=== PATIENT | male | born 1945 | race Hispanic/Latino ===

== ENCOUNTER 2019-05-27 13:31 | Emergency (ER) | payer OTHER ==
[2019-05-27] MEDS ORDERED: IPRATROPIUM BROM 0.5MG/2.5ML ONE (14:10)
[2019-05-27] MEDS ORDERED: ALBUTEROL 2.5 MG/3 ML NEB SOL ONE (14:10)
[2019-05-27] MEDS ORDERED: BENZONATATE 100 MG CAP PO ONE (14:10)
--- NOTE | 2019-05-27 14:49 | RAD REPORT ---
EXAM DESCRIPTION: RAD - Chest Pa And Lat (2 Views) - 05/27/2019 2:29 pm CLINICAL HISTORY: COUGH Chest pain. COMPARISON: CHEST PA AND LAT 2 VIEW dated 02/25/2014; CHEST PA AND LAT 2 VIEW dated 10/23/2012; CHEST PA AND LAT 2 VIEW dated 05/22/2009; CHEST PA AND LAT 2 VIEW dated 10/04/2001 TECHNIQUE: PA and lateral views of the chest were obtained. FINDINGS: The lungs are hyperexpanded compatible with COPD. The heart is upper limit of normal in si ze. No fracture or aggressive bony process. IMPRESSION: COPD without acute process identified.
--- NOTE | 2019-05-27 15:40 | ER ---
Nurse's Notes [facility] Name: Ruddy Marsh Age: 74 yrs Sex: Male : 1945 Arrival Date: 05/27/2019 Time: 13:33 Bed 6 Private MD: Haley Bosch F Diagnosis: Acute upper respiratory infection, unspecified Presentation: 05/27 13:38 Presenting complaint: Patient states: productive cough x 3 days. Transition of care: sv patient was not received from another setting of care. Onset of symptoms was May 24, 2019. Risk Assessment: Do you want to hurt yourself or someone else? Patient reports no desire to harm self or others. Initial Sepsis Screen: Does the patient meet any 2 criteria? HR > 90 bpm. No. Patient's initial sepsis screen is negative. Does the patient have a suspected source of infection? Yes: Productive cough/pneumonia. Care prior to arrival: None. 13:38 Method Of Arrival: Ambulatory sv 13:38 Acuity: GEOFFREY 3 sv Triage Assessment: 13:38 General: Appears in no apparent distress. comfortable, Behavior is calm, cooperative, sv appropriate for age. Neuro: Level of Consciousness is awake, alert, obeys commands, Oriented to person, place, time, situation, Gait is steady. Respiratory: Reports cough that is productive, persistent Respiratory effort is even, unlabored, Respiratory pattern is regular, symmetrical. Historical: - Allergies: 13:39 No Known Allergies; sv - PMHx: 13:39 Hypertension; sv 13:44 COPD; sv - Immunization history:: Adult Immunizations up to date. - Social history:: Smoking status: Patient uses tobacco products, denies chronic smoking, but will smoke occasionally. - Ebola Screening: : No symptoms or risks identified at this time. Screenin:57 Abuse screen: Denies threats or abuse. Denies injuries from another. Nutritional bp screening: No deficits noted. Tuberculosis screening: No symptoms or risk factors identified. Fall Risk None identified. Assessment: 13:45 General: SEE TRIAGE NOTE. Pain: Denies pain. bp 15:47 Reassessment: PT D/C HOME AMBULATORY, DX WITH VIRAL URI. bp Vital Signs: 13:40 BP 184 / 96; Pulse 98; Resp 20; Temp 98.4; Pulse Ox 98% ; Weight 80.74 kg; Height 5 ft. sv 8 in. (172.72 cm); 15:48 BP 169 / 85; Pulse 100; Resp 18; Temp 98.5; Pulse Ox 99% ; bp 13:40 Body Mass Index 27.06 (80.74 kg, 172.72 cm) sv ED Course: 13:33 Patient arrived in ED. mr 13:34 Haley Bosch MD is Private Physician. mr 13:39 Triage completed. sv 13:40 Arm band placed on. sv 13:46 Jose De Jesus Rivera PA is PHCP. cp 13:46 Perez Saeed MD is Attending Physician. cp 13:51 Jovanni Dolan, RN is Primary Nurse. bp 13:57 Patient has correct armband on for positive identification. Bed in low position. Call bp light in reach. Side rails up X2. 14:17 Strep swab [facility] lab[facility] 14:29 XRAY Chest Pa And Lat (2 Views) In Process Unspecified. EDMS 15:39 Haley Bosch MD is Referral Physician. cp 15:48 No provider procedures requiring assistance completed. Patient did not have IV access bp during this emergency room visit. Administered Medications: 14:05 Drug: Albuterol 2.5 mg Route: Inhalation; bp 14:05 Drug: AtroVENT Aerosol 0.5 mg Route: Inhalation; bp 14:05 Drug: Tessalon Perle 200 mg Route: PO; bp 15:47 Follow up: Response: No adverse reaction bp Outcome: 15:39 Discharge ordered by MD. cp 15:48 Discharged to home ambulatory. bp 15:48 Condition: stable 15:48 Discharge instructions given to patient, Instructed on discharge instructions, follow up and referral plans. medication usage, Demonstrated understanding of instructions, follow-up care, medications, Prescriptions given X 3. 15:49 Patient left the ED. bp Signatures: Dispatcher [employer] EDMS Kamini Piña RN RN Natalya Beth mr Jose De Jesus Rivera PA PA [facility] Jovanni Dolan, RN RN bp
--- NOTE | 2019-05-27 15:40 | EDPHYS ---
Physician Documentation [facility] Name: Ruddy Marsh Age: 74 yrs Sex: Male : 1945 Arrival Date: 05/27/2019 Time: 13:33 Bed 6 Private MD: Haley Bosch F ED Physician Perez Saeed HPI: 05/27 14:05 This 74 yrs old Male presents to ER via Ambulatory with complaints of Cough. cp 14:05 The patient or guardian reports cough, that is intermittent, with productive sputum, cp that is white. Onset: The symptoms/episode began/occurred 3 day(s) ago. 14:05 Severity of symptoms: in the emergency department the symptoms are unchanged, despite cp home interventions. Associated signs and symptoms: Pertinent positives: sore throat, Pertinent negatives: chest pain, diarrhea, fever, vomiting. Historical: - Allergies: 13:39 No Known Allergies; sv - PMHx: 13:39 Hypertension; sv 13:44 COPD; sv - Immunization history:: Adult Immunizations up to date. - Social history:: Smoking status: Patient uses tobacco products, denies chronic smoking, but will smoke occasionally. - Ebola Screening: : No symptoms or risks identified at this time. ROS: 14:10 Constitutional: Negative for body aches, chills, fever, poor PO intake. cp 14:10 Eyes: Negative for injury, pain, redness, and discharge. cp 14:10 ENT: Positive for sinus congestion, sore throat, Negative for drainage from ear(s), ear pain, difficulty swallowing, difficulty handling secretions. 14:10 Cardiovascular: Negative for chest pain, edema, palpitations. 14:10 Respiratory: Positive for cough, with white sputum, Negative for dyspnea on exertion, hemoptysis, shortness of breath, wheezing. 14:10 Abdomen/GI: Negative for abdominal pain, nausea, vomiting, and diarrhea. 14:10 Back: Negative for radiated pain. 14:10 : Negative for urinary symptoms. 14:10 Skin: Negative for cellulitis, rash. 14:10 Neuro: Negative for altered mental status, dizziness, headache, syncope, weakness. 14:10 All other systems are negative. Exam: 14:20 Head/Face: Normocephalic, atraumatic. cp 14:20 Constitutional: The patient appears in no acute distress, alert, awake, non-diaphoretic, non-toxic, well developed, well nourished. 14:20 Eyes: Periorbital structures: appear normal, Conjunctiva: normal, no exudate, no cp injection, Sclera: no appreciated abnormality, Lids and lashes: appear normal, bilaterally. 14:20 ENT: External ear(s): are unremarkable, Ear canal(s): are normal, clear, TM's: bulging, is not appreciated, bilaterally, dullness, bilaterally, erythema, is not appreciated, bilaterally, Nose: is normal, Mouth: Lips: moist, Oral mucosa: pink and intact, moist, Posterior pharynx: is normal, airway is patent, no erythema, no exudate. 14:20 Neck: ROM/movement: is normal, is supple, without pain, no range of motions limitations, no meningismus, no nuchal rigidity. 14:20 Chest/axilla: Inspection: normal, Palpation: is normal, no crepitus, no tenderness. 14:20 Cardiovascular: Rate: normal, Rhythm: regular, Edema: is not appreciated. 14:20 Respiratory: the patient does not display signs of respiratory distress, Respirations: normal, no use of accessory muscles, no shallow respirations, no splinting, Breath sounds: rales, are not appreciated, decreased breath sounds, that are mild, throughout, rhonchi, are not appreciated, stridor, is not appreciated, + upper airway congestion. wheezing: is not appreciated. 14:20 Abdomen/GI: Inspection: abdomen appears normal, Palpation: abdomen is soft and non-tender, in all quadrants. 14:20 Back: pain, is absent, ROM is normal. 14:20 Skin: no rash present. 14:20 Neuro: Orientation: to person, place \T\ time. Mentation: is normal, Cerebellar function: Motor: moves all fours, strength is normal, Gait: is steady. Vital Signs: 13:40 BP 184 / 96; Pulse 98; Resp 20; Temp 98.4; Pulse Ox 98% ; Weight 80.74 kg; Height 5 ft. sv 8 in. (172.72 cm); 15:48 BP 169 / 85; Pulse 100; Resp 18; Temp 98.5; Pulse Ox 99% ; bp 13:40 Body Mass Index 27.06 (80.74 kg, 172.72 cm) sv MDM: 13:53 Patient medically screened. cp 14:00 Differential Diagnosis: Bronchitis Influenza Sinusitis Otitis Media Viral Syndrome cp Pneumonia. 15:38 Data reviewed: vital signs, nurses notes, lab test result(s), radiologic studies, CT cp scan. 15:38 Test interpretation: by ED physician or midlevel provider: chest xray negative for cp infiltrates. Counseling: I had a detailed discussion with the patient and/or guardian regarding: the historical points, exam findings, and any diagnostic results supporting the discharge/admit diagnosis, lab results, radiology results, to return to the emergency department if symptoms worsen or persist or if there are any questions or concerns that arise at home. Response to treatment: the patient's symptoms have mildly improved after treatment, and as a result, I will discharge patient. Special discussion: I discussed with the patient/guardian that the patient's current presentation does not indicate dosing of antibiotics. They should follow-up with their primary care provider and return if the symptoms persist or progress. 05/27 14:00 Order name: Strep; Complete Time: 15:15 cp 05/27 15:15 Interpretation: Reviewed. cp 05/27 14:41 Order name: Throat Culture EDMS 05/27 14:00 Order name: XRAY Chest Pa And Lat (2 Views) cp Administered Medications: 14:05 Drug: Albuterol 2.5 mg Route: Inhalation; bp 14:05 Drug: AtroVENT Aerosol 0.5 mg Route: Inhalation; bp 14:05 Drug: Tessalon Perle 200 mg Route: PO; bp 15:47 Follow up: Response: No adverse reaction bp Disposition: 05/27/19 15:39 Discharged to Home. Impression: Acute upper respiratory infection, unspecified. - Condition is Stable. - Discharge Instructions: Upper Respiratory Infection, Adult. - Prescriptions for Ibuprofen 800 mg Oral Tablet - take 1 tablet by ORAL route every 8 hours As needed take with food; 30 tablet. Tessalon Perles 100 mg Oral Capsule - take 2 capsule by ORAL route every 8 hours As needed; 20 capsule. Albuterol Sulfate 90 mcg/actuation - inhale 1-2 puff by INHALATION route every 4-6 hours; 1 Inhaler. - Medication Reconciliation Form, Thank You Letter, Antibiotic Education, Prescription Opioid Use form. - Follow up: Haley Bosch MD; When: 2 - 3 days; Reason: Recheck today's complaints. - Problem is new. - Symptoms have improved. Addendum: 05/29/2019 19:23 Co-signature as Attending Physician, Perez Saeed MD I agree with the assessment and k dr plan of care. Signatures: Dispatcher [employer] EDKamini Mckenzie, RN RN Perez Hayes MD MD [facility] Jose De Jesus Rivera PA PA cp Jovanni Dolan RN RN bp Corrections: (The following items were deleted from the chart) 05/27 15:49 15:39 05/27/2019 15:39 Discharged to Home. Impression: Acute upper respiratory bp infection, unspecified. Condition is Stable. Forms are Medication Reconciliation Form, Thank You Letter, Antibiotic Education, Prescription Opioid Use. Follow up: Haley Bosch; When: 2 - 3 days; Reason: Recheck today's complaints. Problem is new. Symptoms have improved. cp
== END 2019-05-27 15:49 | disposition home or self-care (01) ==
LOC: ER 13:31
DX: J06.9 Acute upper respiratory infection, unspecified (principal)
CPT/HCPCS: 71046; 87070; 87081; 99284

== ENCOUNTER 2021-11-25 01:01 | Emergency (ER) | payer OTHER ==
[2021-11-25 01:50] LABS: Absolute Lymphocytes (CBC) 2.2 K/uL (0.7-4.9); Hematocrit 44.3 % (39.6-49.0); Lymphocytes % 32.7 % (15.3-44.8); MPV 7.1 fL (7.6-11.3)
[2021-11-25 01:51] LABS: Protime INR 0.97
[2021-11-25 02:04] LABS: Albumin 3.2 g/dL (3.4-5.0); Bilirubin Direct 0.1 mg/dL (0-0.2); Bilirubin Total 0.4 mg/dL (0.2-1.0); Magnesium 2.1 mg/dL (1.8-2.4); Potassium 3.3 mmol/L (3.5-5.1); Protein, Total 6.9 g/dL (6.4-8.2); Troponin High Sensitivity 22.7 pg/mL (<58.9)
[2021-11-25] MEDS ORDERED: predniSONE 20 MG TAB ONE (02:20)
[2021-11-25] MEDS ORDERED: CEFTRIAXONE 1000 MG/VIAL ONE (02:20)
--- NOTE | 2021-11-25 02:32 | ER ---
Nurse's Notes [facility] Name: Ruddy Marsh Age: 76 yrs Sex: Male : 1945 Arrival Date: 11/25/2021 Time: 01:03 Bed 6 Private MD: Diagnosis: COPD/ Chronic obstructive pulmonary disease, unspecified Presentation: 11/25 01:16 Chief complaint: Patient states: I woke up with difficulty breathing and SOB. My oxygen st1 saturation at home was in the 80's. Coronavirus screen: Vaccine status: Patient reports being unvaccinated. Client denies travel out of the [place] in the last 14 days. Ebola Screen: No symptoms or risks identified at this time. Initial Sepsis Screen: Does the patient meet any 2 criteria? No. Patient's initial sepsis screen is negative. Does the patient have a suspected source of infection? No. Patient's initial sepsis screen is negative. Risk Assessment: Do you want to hurt yourself or someone else? Patient reports no desire to harm self or others. Onset of symptoms was November 25, 2021. 01:16 Method Of Arrival: Ambulatory st1 01:16 Acuity: GEOFFREY 3 st1 Triage Assessment: 01:18 General: Appears in no apparent distress. comfortable, Behavior is calm, cooperative. st1 Pain: Denies pain. Respiratory: Reports shortness of breath at rest Onset: The symptoms/episode began/occurred suddenly, the patient has moderate shortness of breath. Historical: - Allergies: 01:18 No Known Allergies; st1 - PMHx: 01:18 COPD; Hypertension; st1 - Immunization history:: Adult Immunizations not up to date. - Social history:: Smoking status: Patient reports the use of cigarette tobacco products, denies chronic smoking, but will smoke occasionally, 2-3 cigarettes per day . Screenin:20 Abuse screen: Denies threats or abuse. Nutritional screening: No deficits noted. st1 Tuberculosis screening: No symptoms or risk factors identified. Fall Risk None identified. No fall in past 12 months (0 pts). No secondary diagnosis (0 pts). IV access (20 points). Ambulatory Aid- None/Bed Rest/Nurse Assist (0 pts). Gait- Normal/Bed Rest/Wheelchair (0 pts) Mental Status- Oriented to own ability (0 pts). Total Londono Fall Scale indicates No Risk (0-24 pts). Assessment: 01:20 Reassessment: Patient appears in no apparent distress at this time. Patient is alert, st1 oriented x 3, equal unlabored respirations, skin warm/dry/pink. Respiratory: No deficits noted. Airway is patent Respiratory effort is even, unlabored, relaxed, 02:20 Reassessment: Patient is alert, oriented x 3, equal unlabored respirations, skin al4 warm/dry/pink. 02:41 Reassessment: Patient is alert, oriented x 3, equal unlabored respirations, skin al4 warm/dry/pink. 02:42 Cardiovascular: Rhythm is regular. al4 Vital Signs: 01:16 Weight 72.57 kg; Height 5 ft. 8 in. (172.72 cm); Pain 0/10; st1 01:16 BP 149 / 64; Pulse 46; Resp 15; Temp 97.9(O); Pulse Ox 95% on R/A; st1 02:00 BP 111 / 65; Pulse 72; Resp 18 S; Pulse Ox 92% on R/A; al4 01:16 Body Mass Index 24.33 (72.57 kg, 172.72 cm) st1 ED Course: 01:03 Patient arrived in ED. wm 01:12 Rachel Amaral, BREEZY is Primary Nurse. st1 01:12 Montez Andrade NP is PHCP. pm1 01:12 Fredy Connell MD is Attending Physician. pm1 01:17 Triage completed. st1 01:18 Arm band placed on right wrist. st1 01:21 Patient has correct armband on for positive identification. Placed in gown. Bed in low st1 position. Call light in reach. Side rails up X 1. 01:30 Inserted saline lock: 20 gauge in right forearm, using aseptic technique. st1 01:34 Basic Metabolic Panel Sent. st1 01:34 LFT's Sent. st1 01:34 CBC with Diff Sent. st1 01:34 Magnesium Sent. st1 01:34 NT PRO-BNP Sent. st1 01:34 PT-INR Sent. st1 01:34 Troponin HS Sent. st1 01:53 XRAY Chest (1 view) In Process Unspecified. EDMS 02:42 No provider procedures requiring assistance completed. IV discontinued, intact, al4 bleeding controlled, No redness/swelling at site. Pressure dressing applied. Administered Medications: 02:22 Drug: predniSONE 60 mg Route: PO; al4 02:48 Follow up: Response: No adverse reaction al4 02:23 Drug: Rocephin (cefTRIAXone) 1 grams Route: IV; Rate: calculated rate; Site: right al4 forearm; 02:23 Follow up: Response: No adverse reaction; IV Status: Completed infusion al4 Outcome: 02:31 Discharge ordered by MD. pm1 02:42 Discharged to home ambulatory, with family. al4 02:42 Condition: stable 02:42 Discharge instructions given to patient, Instructed on discharge instructions, follow up and referral plans. medication usage, Demonstrated understanding of instructions, follow-up care, medications, Prescriptions given X 3. 02:48 Patient left the ED. al4 Signatures: Dispatcher [employer] EDMS Montez Andrade, DOMINIC GUIDANCE DIRECTOR pm1 Alanis Houston Alexis al4 Rachel Amaral, RN RN st1 Corrections: (The following items were deleted from the chart) 01:18 01:16 BP 149 / 64; Pulse 46bpm; Resp 15bpm; Pulse Ox 95% RA; st1 st1 02:47 02:42 Discharged to home ambulatory, al4 al4 02:47 02:42 Discharge instructions given to patient, Instructed on discharge instructions, al4 follow up and referral plans. medication usage, Demonstrated understanding of instructions, follow-up care, medications, Prescriptions given X 3, al4
--- NOTE | 2021-11-25 02:32 | EDPHYS ---
Physician Documentation [facility] Name: Ruddy Marsh Age: 76 yrs Sex: Male : 1945 Arrival Date: 11/25/2021 Time: 01:03 Bed 6 Private MD: ED Physician Fredy Connell HPI: 11/25 01:27 This 76 yrs old Male presents to ER via Ambulatory with complaints of pm1 Breathing Difficulty, Low O2. 01:27 The patient has shortness of breath at rest. Onset: The symptoms/episode began/occurred pm1 today. The patient's shortness of breath is alleviated by inhaler, no shortness of breath present now. Associated signs and symptoms: Pertinent negatives: chest pain, diaphoresis, fever, vomiting. Severity of symptoms: in the emergency department the symptoms have improved. The patient has not experienced similar symptoms in the past. The patient has not recently seen a physician. Patient with history of COPD. smoking 3-4 cigarettes per day. Patient reports onset of shortness of breath today. He used his inhaler prior to arrival and his shortness of breath has resolved. Historical: - Allergies: 01:18 No Known Allergies; st1 - PMHx: 01:18 COPD; Hypertension; st1 - Immunization history:: Adult Immunizations not up to date. - Social history:: Smoking status: Patient reports the use of cigarette tobacco products, denies chronic smoking, but will smoke occasionally, 2-3 cigarettes per day . ROS: 01:27 Constitutional: Negative for fever, chills, and weight loss, Cardiovascular: Negative pm1 for chest pain, palpitations, and edema. 01:27 Abdomen/GI: Negative for abdominal pain, nausea, vomiting, diarrhea, and constipation, Back: Negative for injury and pain, MS/Extremity: Negative for injury and deformity, Skin: Negative for injury, rash, and discoloration, Neuro: Negative for headache, weakness, numbness, tingling, and seizure. 01:27 Respiratory: Positive for shortness of breath. 01:27 All other systems are negative. Exam: 01:27 Constitutional: This is a well developed, well nourished patient who is awake, alert, pm1 and in no acute distress. Head/Face: Normocephalic, atraumatic. 01:27 Back: No spinal tenderness. No costovertebral tenderness. Full range of motion. Skin: Warm, dry with normal turgor. Normal color with no rashes, no lesions, and no evidence of cellulitis. MS/ Extremity: Pulses equal, no cyanosis. Neurovascular intact. Full, normal range of motion. 01:27 Cardiovascular: Exam negative for acute changes, Rate: normal, Rhythm: regular, Pulses: no pulse deficits are appreciated, Heart sounds: normal, normal S1and S2. 01:27 Respiratory: Exam negative for acute changes, respiratory distress, shortness of breath. 01:27 Neuro: Exam negative for acute changes, Orientation: is normal, Motor: is normal, moves all fours. Vital Signs: 01:16 Weight 72.57 kg; Height 5 ft. 8 in. (172.72 cm); Pain 0/10; st1 01:16 BP 149 / 64; Pulse 46; Resp 15; Temp 97.9(O); Pulse Ox 95% on R/A; st1 02:00 BP 111 / 65; Pulse 72; Resp 18 S; Pulse Ox 92% on R/A; al4 01:16 Body Mass Index 24.33 (72.57 kg, 172.72 cm) st1 MDM: 01:17 Patient medically screened. pm1 02:30 Data reviewed: vital signs. Data interpreted: Pulse oximetry: on room air is 95 %. pm1 Interpretation: normal. 11/25 01:26 Order name: Basic Metabolic Panel; Complete Time: 02:05 pm11/25 01:26 Order name: CBC with Diff; Complete Time: 01:58 pm11/25 01:26 Order name: LFT's; Complete Time: 02:05 pm11/25 01:26 Order name: Magnesium; Complete Time: 02:05 pm11/25 01:26 Order name: NT PRO-BNP; Complete Time: 02:05 pm11/25 01:26 Order name: PT-INR; Complete Time: 01:58 pm11/25 01:26 Order name: Troponin HS; Complete Time: 02:05 pm11/25 01:26 Order name: XRAY Chest (1 view) pm11/25 01:26 Order name: EKG; Complete Time: 01:27 pm11/25 01:26 Order name: Cardiac monitoring; Complete Time: 01:27 pm11/25 01:26 Order name: EKG - Nurse/Tech; Complete Time: :34 pm1 11/25 01:26 Order name: IV Saline Lock; Complete Time: :34 pm11/25 01:26 Order name: Labs collected and sent; Complete Time: :34 pm11/25 01:26 Order name: O2 Per Protocol; Complete Time: :27 pm1 11/25 01:26 Order name: O2 Sat Monitoring; Complete Time: : pm1 Administered Medications: 02:22 Drug: predniSONE 60 mg Route: PO; al4 02:48 Follow up: Response: No adverse reaction al4 02:23 Drug: Rocephin (cefTRIAXone) 1 grams Route: IV; Rate: calculated rate; Site: right al4 forearm; 02:23 Follow up: Response: No adverse reaction; IV Status: Completed infusion al4 Disposition: 04:21 Co-signature as Attending Physician, Fredy Connell MD. [email or web address] Disposition Summary: 11/25/21 02:31 Discharge Ordered Location: Home pm1 Problem: new pm1 Symptoms: have improved pm1 Condition: Stable pm1 Diagnosis - COPD/ Chronic obstructive pulmonary disease, unspecified pm1 Followup: pm1 - With: Emergency Department - When: As needed - Reason: Worsening of condition Followup: pm1 - With: Private Physician - When: 2 - 3 days - Reason: Recheck today's complaints, Continuance of care, Re-evaluation by your physician Discharge Instructions: - Discharge Summary Sheet pm1 - Chronic Obstructive Pulmonary Disease pm1 - Chronic Obstructive Pulmonary Disease Exacerbation pm1 Forms: - Medication Reconciliation Form pm1 - Thank You Letter pm1 - Antibiotic Education pm1 - Prescription Opioid Use pm1 Prescriptions: - Zithromax Z-Mathew 250 mg Oral Tablet - take 1 tablet by ORAL route as directed for 5 days Day 1 - take two (2) tablets pm1 one time. Day 2, 3, 4 , 5 take one (1) tablet once daily.; 6 tablet; Refills: 0, Product Selection Permitted - Medrol (Mathew) 4 mg Oral Tablets, Dose Pack - take 1 tablet by ORAL route as directed - follow package instructions; 1 pm1 packet; Refills: 0, Product Selection Permitted - Guaifenesin AC 10-100 mg/5 mL Oral Liquid - take 10 milliliters by ORAL route every 4 hours As needed; 240 milliliter; pm1 Refills: 0, Product Selection Permitted Signatures: Dispatcher [employer] Montez Clark, ASSISTANT GOLF COACH ASSISTANT GOLF COACH pm1 Fredy Connell MD MD 7 Jefry Escobedo pr4 Rachel Amaral, RN RN st1
[2021-11-25 03:26] VITALS: TEMP 97.9
[2021-11-25 03:27] VITALS: BP 111/65; O2SAT 92
--- NOTE | 2021-11-25 08:48 | EKG ---
Test Date: 2021-11-25 Test Time: 01:36:44 Education Research Analyst: FILIPE MEASUREMENT RESULTS: Intervals: Rate: 83 MS: 156 QRSD: 108 QT: 408 QTc: 479 [place]: P: 76 MS: 156 QRS: -53 T: 84 INTERPRETIVE STATEMENTS: Sinus rhythm with premature atrial complexes Incomplete right bundle branch block Left anterior fascicular block Septal infarct, age undetermined Abnormal ECG Compared to ECG 12/21/2013 11:32:00 Incomplete right bundle-branch block now present Left anterior fascicular block now present Myocardial infarct finding now present Electronically Signed On 11-25-21 08:47:34 EMERY WHEEL WORKER by Axel Rincon
--- NOTE | 2021-11-25 12:51 | RAD REPORT ---
EXAM DESCRIPTION: RAD - Chest Single View - 11/25/2021 1:53 am CLINICAL HISTORY: The patient is 76 years old and is Male; SOB TECHNIQUE: Frontal view of the chest. COMPARISON: No relevant prior studies available. FINDINGS: LUNGS: Worsening interstitial markings are present. There is no lobar consolidation. PLEURAL SPACE: Unremarkable. No pneumothorax. HEART: Unremarkable. No cardiomegaly. MEDIASTINUM: Unremarkable. BONES/JOINTS: There are degenerative changes of the bones. VASCULATURE: Atherosclerosis of the aorta is present. UPPER ABDOMEN: Unremarkable as visualized. IMPRESSION: No acute cardiopulmonary process. Electronically signed by: Ladan Kemp MD 11/25/2021 2:27 AM HALF BACKER Due to temporary technical issues with the PACS/Fluency reporting system, reports are being signed by the in house radiologist without review as a courtesy to ensure prompt reporting. The interpreting r adiologist is fully responsible for the content of the report
== END 2021-11-25 02:48 | disposition home or self-care (01) ==
LOC: ER 01:01
DX: J44.9 Chronic obstructive pulmonary disease, unspecified (principal); I10 Essential (primary) hypertension; F17.210 Nicotine dependence, cigarettes, uncomplicated
CPT/HCPCS: 36415; 71045; 80048; 80076; 83735; 83880; 84484; 85025; 85610; 93005; 96374; 99284; J7512